=== PATIENT | male | born 1960 | race Caucasian/White ===

== ENCOUNTER 2023-05-14 13:04 | Outpatient (OUT) | payer BC, SELFPAY ==
[2023-05-14 13:38] LABS: Basophils Percent Auto 0.9 % (0.2-2.0); Eosinophils Absolute Auto 0.1 10^3/uL (0.0-0.7); Hematocrit 34.3 % (42.0-54.0); Hemoglobin 11.6 g/dL (14.0-18.0); Immature Granulocytes Abs Auto 0.01 10^3/uL (0.00-0.03); Immature Granulocytes Pct Auto 0.3 % (0.0-0.5); Lymphocytes Absolute Auto 1.3 10^3/uL (1.2-3.8); Lymphocytes Percent Auto 38.3 % (20.5-60.0); Mean Corpuscular HGB Conc 33.8 g/dL (29.9-35.2); Mean Corpuscular Hemoglobin 30.3 pg (25.9-34.0); Mean Corpuscular Volume 89.6 fL (80.0-94.0); Mean Platelet Volume 8.8 fL (9.5-13.5); Monocytes Absolute Auto 0.4 10^3/uL (0.3-0.8); Monocytes Percent Auto 11.9 % (1.7-12.0); Neutrophils Absolute Auto 1.5 10^3/uL (1.4-6.5); Neutrophils Percent Auto 45.6 % (43.0-75.0); Platelet Count 224 10^3/uL (150-450); Red Blood Count 3.83 10^6/uL (4.70-6.10); Red Cell Distribution Width 12.4 % (11.0-15.0); White Blood Count 3.4 10^3/uL (4.0-11.0)
[2023-05-14 14:21] LABS: Estimated Average Glucose 103 mg/dL; Glycohemoglobin A1C 5.2 % (4.5-6.2)
[2023-05-14 14:36] LABS: Prostate Specific Antigen Dx 0.57 ng/mL (<=4.00)
[2023-05-14 14:37] LABS: Alanine Aminotransferase 34 U/L (16-63); Albumin Globulin Ratio 1.1; Albumin Level 3.6 g/dL (3.4-5.0); Alkaline Phosphatase 55 U/L (46-116); Anion Gap 10.4; Aspartate Amino Transferase 20 U/L (15-37); BUN Creatinine Ratio 13.3; Bilirubin Direct 0.1 mg/dL (0.0-0.2); Bilirubin Total 0.5 mg/dL (0.2-1.0); Calcium 8.6 mg/dL (8.5-10.1); Carbon Dioxide 30.8 mmol/L (21.0-32.0); Chloride 104 mmol/L (98-107); Chol HDL Ratio 2.3; Cholesterol 172 mg/dL (<=200); Estimated GFR (African America >60 (>=60); Estimated GFR (Non-African Ame >60 (>=60); Globulin 3.2 g/dL; Glucose 92 mg/dL (74-106); HDL Cholesterol 74 mg/dL (40-60); Potassium 4.2 mmol/L (3.5-5.1); Sodium 141 mmol/L (136-145); Thyroid Stimulating Hormone <0.007 uIU/mL (0.358-3.740); Total Protein 6.8 g/dL (6.4-8.2); Triglycerides 79 mg/dL (<=150); VLDL CHOLESTEROL 15.8 mg/dL
== END 2023-05-14 13:05 | disposition home or self-care (01) ==
PROVIDERS: PCP Family Medicine; Visit Provider Family Medicine
DX: Z00.00 Encounter for general adult medical examination without abnormal findings (principal)
CPT/HCPCS: 36415; 80048; 80061; 80076; 83036; 84153; 84443; 85025

== ENCOUNTER 2023-06-05 12:03 | Outpatient (OUT) | payer BC, SELFPAY ==
[2023-06-05 13:22] LABS: Free T4 1.12 ng/dL (0.76-1.46)
[2023-06-05 13:36] LABS: Free T3 6.23 pg/mL (2.18-3.98)
== END 2023-06-05 12:04 | disposition home or self-care (01) ==
LOC: LAB 12:03
PROVIDERS: PCP Family Medicine; Visit Provider Family Medicine
DX: E03.9 Hypothyroidism, unspecified (principal)
CPT/HCPCS: 36415; 84439; 84481

== ENCOUNTER 2023-10-01 14:40 | Outpatient (OUT) | payer BC, SELFPAY ==
--- NOTE | 2023-10-01 | XR_ITS ---
The [address] [address] Patient Name: VANESA RENDON MRN: [id number] date: 1960 Sex: M Assigned Patient Location: Current Patient Location: Accession/Order Number: [id number] Exam Date: 10/01/2023 14:41 Report Date: 10/01/2023 16:30 At the request of: RIKKI MOFFETT Procedure: XR foot LT min 3V PROCEDURE: XR foot LT min 3V COMPARISON: None. HISTORY: LEFT FOOT PAIN FINDINGS: BONES:No acute fracture or dislocation. Minimal enthesopathic spurring the calcaneus at the Achilles insertion. Minimal degenerative changes with marginal osteophyte formation SOFT TISSUES:Negative. No visible soft tissue swelling. EFFUSION:None visible. OTHER: Negative. XR/XR foot LT min 3V IMPRESSION: Minimal degenerative changes Electronically authenticated by: FELIX REAL Date: 10/01/2023 16:30
== END 2023-10-01 14:41 | disposition home or self-care (01) ==
LOC: EC 14:40
PROVIDERS: PCP Family Medicine; Visit Provider Podiatrist Foot & Ankle Surgery
DX: M79.672 Pain in left foot (principal)
CPT/HCPCS: 73630

== ENCOUNTER 2023-11-03 09:26 | Outpatient (OUT) | payer BC, SELFPAY ==
[2023-11-03 10:53] LABS: Free T4 0.77 ng/dL (0.76-1.46)
[2023-11-03 10:58] LABS: Free T3 4.35 pg/mL (2.18-3.98); Thyroid Stimulating Hormone 0.064 uIU/mL (0.358-3.740)
== END 2023-11-03 09:27 | disposition home or self-care (01) ==
LOC: LAB 09:27
PROVIDERS: PCP Family Medicine; Visit Provider Family Medicine
DX: E03.8 Other specified hypothyroidism (principal); E06.3 Autoimmune thyroiditis
CPT/HCPCS: 36415; 84439; 84443; 84481